=== PATIENT | female | born 1985 ===

== ENCOUNTER 2017-11-02 08:58 | Emergency (ER) | payer OTHER ==
[2017-11-02 08:58] VITALS: BMI 20.3
--- NOTE | 2017-11-02 09:49 | ED PDOC ---
Arrival/HPI - General Chief Complaint: Flu-like Symptoms Time Seen by Provider: 11/02/17 09:21 Historian: Patient - History of Present Illness Narrative History of Present Illness (Text): 11/02/17 09:44 Pt is a 32 F who presents to the ED for LUQ pain x 4 hrs today (1am-6am) that wrps around to the back, productive cough, and subjective fever x 1 day. Pt complains that she recently began smoking again which typically causes a cough. As well, she reports itchy and watery eyes, nose and throat and change in appetite. Also reports Pt has h/o anxiety for which she takes clonazapam as needed and has allergies. Denies cp, n/v/d GIB, or change in bowel or urine output, or recent illnesses. FMH includes pancreatitis. t states that she believes she is having pancreatitis. Time/Duration: Prior to Arrival Symptom Onset: Sudden Symptom Course: Improving Quality: Aching, Cramping Severity Level: Mild Activities at Onset: Rest, Sleeping Context: Home Past Medical History - Provider Review Nursing Documentation Reviewed: Yes - Travel History Have you recently traveled outside [place] w/in the past 3 mons?: No - Past History Past History: No Previous - Infectious Disease Hx of Infectious Diseases: None - Tetanus Immunization Tetanus Immunization: Unknown - Reproductive Currently : No - Cardiac Hx Cardiac Disorders: No - Pulmonary Hx Respiratory Disorders: No - Neurological Hx Neurological Disorder: No - HEENT Hx HEENT Disorder: No - Renal Hx Renal Disorder: No - Endocrine/Metabolic Hx Endocrine Disorders: No - Hematological/Oncological Hx Blood Disorders: No - Integumentary Hx Dermatological Disorder: No - Musculoskeletal/Rheumatological Hx Musculoskeletal Disorders: No - Gastrointestinal Hx Gastrointestinal Disorders: No - Genitourinary/Gynecological Hx Genitourinary Disorders: No - Psychiatric Hx Psychophysiologic Disorder: Yes Hx Anxiety: Yes Hx Depression: Yes Hx Substance Use: No - Anesthesia Hx Anesthesia: No - Suicidal Assessment Feels Threatened In Home Enviroment: No Family/Social History - Physician Review Nursing Documentation Reviewed: Yes Family/Social History: Other (pancreatitis) Smoking Status: Light Smoker < 10 Cigarettes Daily Hx Alcohol Use: No Hx Substance Use: No Allergies/Home Meds Allergies/Adverse Reactions: Allergies Penicillins Allergy (Verified 11/02/17 09:31) URTICARIA Home Medications: Home Meds Medication Instructions Recorded Confirmed clonazePAM [Klonopin] 0.5 mg PO PRN PRN 12/08/16 11/02/17 Review of Systems - Physician Review All systems were reviewed & negative as marked: Yes - Review of Systems Constitutional: Normal, Fevers (subjective) Eyes: Normal ENT: Sore Throat, Rhinorrhea Respiratory: SOB, Cough, Wheezing Cardiovascular: Normal Gastrointestinal: Abdominal Pain (diffuse, left upper abdominal and left back) Genitourinary Female: Normal Musculoskeletal: Normal Skin: Normal Neurological: Normal Endocrine: Normal Hemo/Lymphatic: Normal Psychiatric: Normal Physical Exam Vital Signs Reviewed: Yes Vital Signs Temp Pulse Resp BP Pulse Ox 11/02/17 14:52 98.5 F 93 H 18 98/58 L 99 11/02/17 12:28 98.6 F 85 22 95/59 L 100 11/02/17 11:59 98.6 F 11/02/17 10:59 100.5 F H 11/02/17 10:34 100.5 F H 11/02/17 08:58 99.4 F 98 H 20 105/69 99 Temperature: Afebrile Blood Pressure: Normal Pulse: Regular Respiratory Rate: Normal Appearance: Positive for: Non-Toxic, Comfortable Pain Distress: None Mental Status: Positive for: Alert and Oriented X 3 - Systems Exam Head: Present: Atraumatic, Normocephalic Pupils: Present: PERRL Extroacular Muscles: Present: EOMI Conjunctiva: Present: Normal Mouth: Present: Moist Mucous Membranes Pharnyx: Present: ERYTHEMA. No: Normal, EXUDATE, TONSILS ENLARGED, Peritonsilar Swelling, Uvular Deviation, Muffled/Hoarse Voice, Strider, Soft Palate/Uvular Edema, Other Neck: Present: Normal Range of Motion. No: Meningeal Signs, MIDLINE TENDERNESS , Paraspinal Tenderness, JVD, Lymphadenopathy, Bruit, Trachea Midline, Other Respiratory/Chest: Present: Good Air Exchange, Wheezes. No: Respiratory Distress, Accessory Muscle Use Cardiovascular: Present: Regular Rate and Rhythm, Normal S1, S2. No: Murmurs Abdomen: Present: Tenderness (mostly diffuse, left flank pain), Normal Bowel Sounds. No: Distention, Peritoneal Signs Back: Present: Normal Inspection. No: CVA Tenderness, Midline Tenderness, Paraspinal Tenderness, Pain with Leg Raise, Decubitus Ulcer, Other Upper Extremity: Present: Normal Inspection. No: Cyanosis, Edema Lower Extremity: Present: Normal Inspection. No: Edema Neurological: Present: GCS=15, CN II-XII Intact, Speech Normal Skin: Present: Warm, Dry, Normal Color. No: Rashes Psychiatric: Present: Alert, Oriented x 3, Normal Insight, Normal Concentration Medical Decision Making ED Course and Treatment: 11/02/17 09:49 Pt is a 32 F who presents t the ED for LUQ pain x 4 hrs today (1am-6am) along with left flank pain, productive cough, and subjective fever x 1 day PE reveals mild wheezing bilateral lung lopez, mild posterior pharyngeal erythema, mild diffuse abdominal tenderness on palpation Plan CXR cbc, cmp, ua, rapid flu working dx of pancreatitis, uti, flu/uri -NPO, abd/pelvis CT with po and iv contrast, lipase and lipid levels, ivfluids @ 200cc/hr -pain management assess and dispo Progress Note Pt developed fever and was given acetaminophen 650 mg po Zofran 4 mg for nausea Morphine 2mg ivp q6 prn; pt refused morphine and requested other; Toradol 30 mg ivp stat Discussed findings with pt and partner; no pathology found on labs and imaging Dx of flu although not tested positive, cough, fever, stomach pain and change in appetite very typical Homecare: loratidine for allergies; stop smoking and use humidifier in house and bedroom acetaminophen for fever ranitidine for indigestion and nausea f/u with PMD in the next 2 days 11/02/17 13:47 - Lab Interpretations Lab Results: 11/02/17 10:20 11/02/17 10:20 Lab Results 11/02/17 12:40: C-React Prot High Sens 0.32 L 11/02/17 11:38: Triglycerides 49, Cholesterol 131, LDL Cholesterol Direct 67, HDL Cholesterol 44, Amylase 45, Lipase 76 11/02/17 10:20: Influenza Typ A,B (EIA) Negative for flu a/b 11/02/17 10:20: Sodium 142, Potassium 3.6, Chloride 105, Carbon Dioxide 27, Anion Gap 13, BUN 6 L, Creatinine 0.7, Est GFR ( Amer) > 60, Est GFR (Non -Af Amer) > 60, Random Glucose 92, Calcium 8.9, Total Bilirubin 0.4, AST 27, ALT 26, Alkaline Phosphatase 41, Total Protein 6.4, Albumin 3.6, Globulin 2.8, Albumin/Globulin Ratio 1.3 11/02/17 10:20: Urine Color Yellow, Urine Appearance Clear, Urine pH 7.5, Ur Specific Lorimor 1.020, Urine Protein Negative, Urine Glucose (UA) Negative, Urine Ketones Negative, Urine Blood Negative, Urine Nitrate Negative, Urine Bilirubin Negative, Urine Urobilinogen 0.2, Ur Leukocyte Esterase Negative 11/02/17 10:20: WBC 3.5 L D, RBC 4.08, Hgb 11.3 L, Hct 34.5 L, MCV 84.6, MCH 27.7, MCHC 32.8, RDW 13.4, Plt Count 175, MPV 10.0 I have reviewed the lab results: Yes (NEG for Flu) Interpretation: All labs normal - RAD Interpretation Narrative RAD Interpretations (Text): 11/02/17 13:13 Chest XR Findings: No active disease appreciated 11/02/17 13:45 PROCEDURE: CT Abdomen and Pelvis with contrast HISTORY: LUQ pain COMPARISON: None. TECHNIQUE: Contrast dose: 100 cc of Omni 350 Radiation dose: Total exam DLP = 299 mGy-cm. This CT exam was performed using one or more of the following dose reduction techniques: Automated exposure control, adjustment of the mA and/or kV according to patient size, and/or use of iterative reconstruction technique. FINDINGS: LOWER THORAX: Unremarkable. LIVER: Unremarkable. No gross lesion or ductal dilatation. There is some fatty infiltration around the falciform ligament. GALLBLADDER AND BILE DUCTS: Unremarkable. PANCREAS: Unremarkable. No gross lesion or ductal dilatation. SPLEEN: Unremarkable. ADRENALS: Unremarkable. No mass. KIDNEYS AND URETERS: Unremarkable. No hydronephrosis. No solid mass. VASCULATURE: Unremarkable. No aortic aneurysm. BOWEL: Unremarkable. No obstruction. No gross mural thickening. APPENDIX: Normal appendix. PERITONEUM: Unremarkable. No free fluid. No free air. LYMPH NODES: Unremarkable. No enlarged lymph nodes. BLADDER: Unremarkable. REPRODUCTIVE: Retroflexed uterus. Bilateral ovarian cysts BONES: No acute fracture. OTHER FINDINGS: None. IMPRESSION: No acute intra-abdominal findings Radiology Orders: 11/02/17 09:55 CHEST TWO VIEWS (PA/LAT) [RAD] Stat 11/02/17 11:10 ABDOMEN & PELVIS [ABD PELVIS PO & IV CONTRAST] [CT] Stat Research Lab Assistant: Radiologist - Medication Orders Current Medication Orders: Discontinued Medications Acetaminophen (Tylenol 325mg Tab) 650 mg PO STAT STA Stop: 11/02/17 10:53 Last Admin: 11/02/17 10:59 Dose: 650 mg MAR Pain/Vitals Document 11/02/17 10:59 RG (Rec: 11/02/17 11:00 [id number] Vitals Temperature (97.6 F-99.6 F) 100.5 F Temperature Source Oral Re-Assess: MAR Pain/Vitals Document 11/02/17 11:59 RG (Rec: 11/02/17 13:18 [id number] Vitals Temperature (97.6 F-99.6 F) 98.6 F Temperature Source Oral Sodium Chloride (Sodium Chloride 0.9%) 500 mls @ 200 mls/hr IV .Q2H30M CLARENCE Last Admin: 11/02/17 11:40 Dose: 200 mls/hr eMAR Start Stop Document 11/02/17 11:40 RG (Rec: 11/02/17 11:52 [id number] Intravenous Solution Start Date 11/02/17 Start Time 11:40 Ketorolac Tromethamine (Toradol) 30 mg IVP STAT STA Stop: 11/02/17 12:44 Last Admin: 11/02/17 13:04 Dose: 30 mg MAR Pain Assessment Document 11/02/17 13:04 RG (Rec: 11/02/17 13:04 [id number] Pain Reassessment Is this a pain reassessment? Yes Location Left, Right or Bilateral Right Upper or Lower Upper Pain Location Body Site Abdomen Description Description Constant Pain Behavior Moaning Guarding Irritability IVP Administration Document 11/02/17 13:04 RG (Rec: 11/02/17 13:04 [id number] Charges for Administration # of IVP Administrations 1 Morphine Sulfate (Morphine) 2 mg IVP STAT STA Stop: 11/02/17 12:26 Last Admin: 11/02/17 12:41 Dose: Not Given Non-Admin Reason: Patient Refused Ondansetron HCl (Zofran Inj) 4 mg IVP STAT STA Stop: 11/02/17 11:05 Last Admin: 11/02/17 11:04 Dose: 4 mg IVP Administration Document 11/02/17 11:04 TYRONE (Rec: 11/02/17 11:49 TYRONE [id number]) Charges for Administration # of IVP Administrations 1 Disposition/Present on Arrival - Present on Arrival Any Indicators Present on Arrival: No History of DVT/PE: No History of Uncontrolled Diabetes: No Urinary Catheter: No History of Decub. Ulcer: No History Surgical Site Infection Following: None - Disposition Have Diagnosis and Disposition been Completed?: Yes Diagnosis: Influenza, Stomach ache, Cough Disposition: HOME/ ROUTINE Disposition Time: 13:56 Patient Plan: Discharge Condition: STABLE Discharge Instructions (ExitCare): Influenza (ED) Additional Instructions: Dear Nelson, We advise that you continue to rest at home, drink plenty of fluids and eat light meals as you recover. When you don't eat and drink enough fluids, you can feel weak and lightheaded. If you experience chest pain, shortness of breath, severe abdominal pain again, return to the emergency department to be reassessed. Take all medications as recommended. Please follow up with your PMD in the next 24-48 hours. All the best in your recovery! Prescriptions: Acetaminophen [Tylenol Extra Strength] 500 mg PO Q6 5 Days #20 tablet Loratadine 10 mg PO DAILY 14 Days #14 tablet raNITIdine [Zantac Soln 5ml] 150 mg PO BID 5 Days #10 ml Forms: [facility] (Latvian), WORK NOTE
[2017-11-02 10:41] LABS: HEMOGLOBIN 11.3 g/dL (12.0-16.0); MEAN CELL VOLUME 84.6 fl (80.0-105.0); MEAN CORPUSCULAR HEMOGLOBIN 27.7 pg (25.0-35.0); MEAN CORPUSCULAR HGB CONC 32.8 g/dl (31.0-37.0); PH,URINE 7.5 (4.7-8.0); RBC 4.08 10^6/uL (3.5-6.1); RED CELL DISTRIBUTION WIDTH 13.4 % (11.5-14.5); URINE BILIRUBIN NEGATIVE (NEGATIVE); URINE BLOOD NEGATIVE (NEGATIVE); URINE GLUCOSE (UA) NEGATIVE (NEGATIVE); URINE LEUKOCYTE ESTERASE NEGATIVE Leu/uL (NEGATIVE); URINE NITRATE NEGATIVE (NEGATIVE); URINE PROTEIN NEGATIVE mg/dL (<30 mg/dL); URINE UROBILINOGEN 0.2 E.U./dL (<1 E.U./dL); WHITE BLOOD COUNT 3.5 10^3/ul (4.5-11.0)
[2017-11-02 10:46] LABS: ALB/GLOB RATIO 1.3 (1.1-1.8); ALBUMIN 3.6 g/dL (3.0-4.8); ALT/SGPT 26 U/L (7-56); AST/SGOT 27 U/L (14-36); BLOOD UREA NITROGEN 6 mg/dL (7-21); CALCIUM 8.9 mg/dL (8.4-10.5); GFR AFRICAN-AMERICAN > 60; GFR NON-AFRICAN AMERICAN > 60
[2017-11-02 10:47] LABS: URINE APPEARANCE CLEAR (CLEAR); URINE COLOR YELLOW (YELLOW)
[2017-11-02] MEDS ORDERED: Iohexol 240 (50 ml) ONE (11:19)
[2017-11-02] MEDS ORDERED: Sodium Chloride 0.9% 500 ML IV SCH (11:30)
[2017-11-02] MEDS ORDERED: Iohexol 350 MG/100 ML VIAL ONE (11:34)
[2017-11-02 11:56] LABS: HDL CHOLESTEROL 44 mg/dL (29-60); LIPASE 76 U/L (23-300)
[2017-11-02 12:02] LABS: LDL CHOLESTEROL 67 mg/dL (0-129)
[2017-11-02 12:19] LABS: AMYLASE 45 U/L (35-125)
[2017-11-02] MEDS ORDERED: Morphine 2 mg/ml ISec IVP STA (12:25)
--- NOTE | 2017-11-02 12:48 | RAD ---
HISTORY: cough COMPARISON: No prior. TECHNIQUE: Chest PA and lateral FINDINGS: LUNGS: No active pulmonary disease. PLEURA: No significant pleural effusion identified. No pneumothorax apparent. CARDIOVASCULAR: Normal. OSSEOUS STRUCTURES: No significant abnormalities. VISUALIZED UPPER ABDOMEN: Normal. OTHER FINDINGS: None. IMPRESSION: No active disease.
--- NOTE | 2017-11-02 13:37 | CT ---
PROCEDURE: CT Abdomen and Pelvis with contrast HISTORY: LUQ pain COMPARISON: None. TECHNIQUE: Contrast dose: 100 cc of Omni 350 Radiation dose: Total exam DLP = 299 mGy-cm. This CT exam was performed using one or more of the following dose reduction techniques: Automated exposure control, adjustment of the mA and/or kV according to patient size, and/or use of iterative reconstruction technique. FINDINGS: LOWER THORAX: Unremarkable. LIVER: Unremarkable. No gross lesion or ductal dilatation. There is some fatty infiltration around the falciform ligament. GALLBLADDER AND BILE DUCTS: Unremarkable. PANCREAS: Unremarkable. No gross lesion or ductal dilatation. SPLEEN: Unremarkable. ADRENALS: Unremarkable. No mass. KIDNEYS AND URETERS: Unremarkable. No hydronephrosis. No solid mass. VASCULATURE: Unremarkable. No aortic aneurysm. BOWEL: Unremarkable. No obstruction. No gross mural thickening. APPENDIX: Normal appendix. PERITONEUM: Unremarkable. No free fluid. No free air. LYMPH NODES: Unremarkable. No enlarged lymph nodes. BLADDER: Unremarkable. REPRODUCTIVE: Retroflexed uterus. Bilateral ovarian cysts BONES: No acute fracture. OTHER FINDINGS: None. IMPRESSION: No acute intra-abdominal findings
[2017-11-02 14:53] VITALS: BP 98/58; PULSE 93; RESP 18; TEMP 98.5; O2SAT 99
== END 2017-11-02 14:30 | disposition home or self-care (01) ==
LOC: ED 08:58
DX: J11.1 Influenza due to unidentified influenza virus with other respiratory manifestations (principal); R10.9 Unspecified abdominal pain; R05 Cough; F17.210 Nicotine dependence, cigarettes, uncomplicated
CPT/HCPCS: 71046; 74177; 80053; 80061; 81003; 82150; 83690; 85027; 86140; 87804; 96374; 96375; 99285; J1885; J2405; J7040; Q9966; Q9967

== ENCOUNTER 2017-11-02 19:47 | Inpatient (IN) | payer MEDICARE, OTHER ==
[2017-11-02 20:04] VITALS: BMI 19.8
[2017-11-02] MEDS ORDERED: Sodium Chloride 0.9% 1,000 ML IV STA ×2 (20:06→23:23)
[2017-11-02 23:22] LABS: ALB/GLOB RATIO 1.3 (1.1-1.8); ALBUMIN 3.6 g/dL (3.0-4.8); ALT/SGPT 23 U/L (7-56); AST/SGOT 22 U/L (14-36); BASO # 0.01 K/mm3 (0.0-2.0); BASO % 0.4 % (0.0-3.0); BLOOD UREA NITROGEN 6 mg/dL (7-21); CALCIUM 8.9 mg/dL (8.4-10.5); EOS % 1.6 % (1.5-5.0); GFR AFRICAN-AMERICAN > 60; GFR NON-AFRICAN AMERICAN > 60; GRAN # 1.72 (1.4-6.5); GRAN % 67.9 % (50.0-68.0); LYMPH # 0.5 (1.2-3.4); LYMPH % 18.2 % (22.0-35.0); MEAN CELL VOLUME 83.3 fl (80.0-105.0); MEAN CORPUSCULAR HEMOGLOBIN 27.9 pg (25.0-35.0); MEAN CORPUSCULAR HGB CONC 33.5 g/dl (31.0-37.0); MEAN PLATELET VOLUME 10.4 fl (7.0-11.0); MONO # 0.3 (0.1-0.6); MONO % 11.9 % (1.0-6.0); RBC 4.3 10^6/uL (3.5-6.1); RED CELL DISTRIBUTION WIDTH 13.6 % (11.5-14.5)
[2017-11-02 23:48] LABS: WHITE BLOOD COUNT 2.5 10^3/ul (4.5-11.0)
[2017-11-03 01:14] LABS: VENOUS BLOOD GAS BASE EXCESS 0.3 mmol/L (0.0-2.0); VENOUS BLOOD GAS PO2 196 mm/Hg (30-55); VENOUS BLOOD PH 7.46 (7.32-7.43)
[2017-11-03] MEDS ORDERED: levoFLOXacin 750 mg in D5W 750 MG/150 ML BAG IVPB STA (01:20)
[2017-11-03] MEDS ORDERED: Azithromycin 500MG/NS 250ml 500 MG/250 ML BAG IVPB STA (01:27)
[2017-11-03] MEDS ORDERED: cefTRIAXone 1 gm 1 GM/100 ML BAG IVPB STA (01:27)
[2017-11-03] MEDS ORDERED: Albuterol-Ipratrop 3 mg / 0.5 (3 ml) UD IH PRN (02:15)
--- NOTE | 2017-11-03 02:18 | CP.PCM.HP ---
<Tanya Abad - Last Filed: 11/03/17 02:02> History of Present Illness - History of Present Illness History of Present Illness: H&P for HospitalistNighat PGY2 This is a 32yo female with PMH of anxiety who came into ED for fever x 1 day and abdominal pain x 12hrs. Patient was seen earlier today for fever and LUQ pain. Patient reports having LUQ pain that radiates to her back with some nausea that is intermittent. She was d/c from ED with Bactrim, Zofran and Benytl. She had a CT abd/pelvis, CXR and rapid flu which were negative. She still was not feeling well and was "wheezing" as per spouse and decided to come back to the ED. She said her fevers started yesterday with body aches. She denies sick contacts (son was not sick at home), alcohol use, recent travel, cough, chest pain, shortness of breath, numbness/tingling, dysuria, hematuria, vomiting or diarrhea. Patient said she did go to [place] for food tasting for a wedding on Wednesday, but otherwise no changes in diet. In ED, patient was noted to be febrile with Temp: 103 and leukopenia. PMH: anxiety PSH: D&C 11yrs ago Home meds: Klonopin as needed Allergies: Penicillin- causes diarrhea when taken orally SH: Smokes 1/2ppd (quit recently), EtOH use occasionally, denies drug use. Lives with partner and has 11yr old son FH: Mom-RA, SLE, Sjogrens Present on Admission - Present on Admission Any Indicators Present on Admission: No Review of Systems - Review of Systems All systems: reviewed and no additional remarkable complaints except Review of Systems: As per HPI Past Patient History - Infectious Disease Hx of Infectious Diseases: None - Tetanus Immunizations Tetanus Immunization: Unknown - Past Social History Smoking Status: Light Smoker < 10 Cigarettes Daily Alcohol: None Drugs: Denies Home Situation {Lives}: With Family - CARDIAC Hx Cardiac Disorders: No - PULMONARY Hx Respiratory Disorders: No - NEUROLOGICAL Hx Neurological Disorder: No - HEENT Hx HEENT Problems: No - RENAL Hx Chronic Kidney Disease: No - ENDOCRINE/METABOLIC Hx Endocrine Disorders: No - HEMATOLOGICAL/ONCOLOGICAL Hx Blood Disorders: No - INTEGUMENTARY Hx Dermatological Problems: No - MUSCULOSKELETAL/RHEUMATOLOGICAL Hx Musculoskeletal Disorders: No - GASTROINTESTINAL Hx Gastrointestinal Disorders: No - GENITOURINARY/GYNECOLOGICAL Hx Genitourinary Disorders: No - PSYCHIATRIC Hx Psychophysiologic Disorder: Yes Hx Anxiety: Yes Hx Depression: Yes Hx Substance Use: No - SURGICAL HISTORY Hx Surgeries: No - ANESTHESIA Hx Anesthesia: No Meds Allergies/Adverse Reactions: Allergies Allergy/AdvReac Type Severity Reaction Status Date / Time Penicillins Allergy DIARRHEA Verified 11/03/17 01:34 Physical Exam - Constitutional Appears: No Acute Distress - Head Exam Head Exam: ATRAUMATIC, NORMAL INSPECTION, NORMOCEPHALIC - Eye Exam Eye Exam: Normal appearance, PERRL Pupil Exam: NORMAL ACCOMODATION, PERRL - ENT Exam ENT Exam: Mucous Membranes Moist - Respiratory Exam Respiratory Exam: Clear to Auscultation Bilateral, NORMAL BREATHING PATTERN. absent: Rales, Rhonchi, Wheezes - Cardiovascular Exam Cardiovascular Exam: Tachycardia, REGULAR RHYTHM, +S1, +S2. absent: Gallop, Rubs, Systolic Murmur - GI/Abdominal Exam GI & Abdominal Exam: Normal Bowel Sounds, Soft. absent: Mass, Rebound, Rigid, Tenderness - Extremities Exam Extremities exam: Positive for: normal inspection. Negative for: calf tenderness, pedal edema - Neurological Exam Neurological exam: Alert, CN II-XII Intact, Oriented x3 - Psychiatric Exam Psychiatric exam: Normal Affect, Normal Mood - Skin Skin Exam: Dry, Normal Color, Warm Results - Vital Signs Recent Vital Signs: Last Vital Signs Temp 100 F H 11/03/17 00:00 Pulse 98 H 11/03/17 00:00 Resp 16 11/03/17 00:00 BP 125/79 11/03/17 00:00 Pulse Ox 98 11/03/17 00:00 - Labs Result Diagrams: 11/02/17 22:38 11/02/17 22:38 Labs: Laboratory Results - last 24 hr 11/02/17 11/02/17 11/02/17 21:30 22:38 22:38 WBC 2.5 L* D RBC 4.30 Hgb 12.0 Hct 35.8 L MCV 83.3 MCH 27.9 MCHC 33.5 RDW 13.6 Plt Count 176 MPV 10.4 Gran % 67.9 Lymph % (Auto) 18.2 L [place] % (Auto) 11.9 H Eos % (Auto) 1.6 Baso % (Auto) 0.4 Gran # 1.72 Lymph # (Auto) 0.5 L [place] # (Auto) 0.3 Eos # (Auto) 0.0 Baso # (Auto) 0.01 pO2 VBG pH VBG pCO2 VBG HCO3 VBG Total CO2 VBG O2 Sat (Calc) VBG Base Excess VBG Potassium Glucose Lactate FiO2 Sodium 140 Potassium 3.3 L Chloride 106 Carbon Dioxide 23 Anion Gap 14 BUN 6 L Creatinine 0.8 Est GFR ( Amer) > 60 Est GFR (Non-Af Amer) > 60 Random Glucose 115 H Calcium 8.9 Total Bilirubin 0.3 AST 22 ALT 23 Alkaline Phosphatase 39 Total Protein 6.5 Albumin 3.6 Globulin 2.9 Albumin/Globulin Ratio 1.3 Venous Blood Potassium Influenza Typ A,B (EIA) Negative for flu a/b 11/03/17 00:50 WBC RBC Hgb Hct MCV MCH MCHC RDW Plt Count MPV Gran % Lymph % (Auto) [place] % (Auto) Eos % (Auto) Baso % (Auto) Gran # Lymph # (Auto) [place] # (Auto) Eos # (Auto) Baso # (Auto) pO2 196 H VBG pH 7.46 H VBG pCO2 33.0 L VBG HCO3 23.5 VBG Total CO2 24.5 VBG O2 Sat (Calc) 100.0 H VBG Base Excess 0.3 VBG Potassium 3.2 L Glucose 102 Lactate 0.6 L FiO2 21.0 Sodium 139.0 Potassium Chloride 114.0 H Carbon Dioxide Anion Gap BUN Creatinine Est GFR ( Amer) Est GFR (Non-Af Amer) Random Glucose Calcium Total Bilirubin AST ALT Alkaline Phosphatase Total Protein Albumin Globulin Albumin/Globulin Ratio Venous Blood Potassium 3.2 L Influenza Typ A,B (EIA) Assessment & Plan - Assessment and Plan (Free Text) Assessment: This is a 32yo F with PMH of anxiety admitted for SIRS (fever and tachycardia). Plan: 1. SIRS - Can be secondary to flu although rapid flu negative - Will check influenza Ab - CXR negative, CT abd/pelvis was negative for acute pathology, U/A negative - Lactate 0.6 - Procal, HIV and drug screen ordered - Blood culture and sputum culture ordered - ID consulted - Tylenol and Zofran prn - NS@100 - Will give Tamiflu, Rocephin and Zithro 2. Hx of Anxiety - Klonopin prn GI ppx: Protonix DVT ppx: SCDs Case seen, discussed and reviewed with attending. Nighat Abad PGY2 <Jose King - Last Filed: 11/03/17 02:53> Results - Vital Signs Recent Vital Signs: Last Vital Signs Temp 99.9 F H 11/03/17 02:00 Pulse 112 H 11/03/17 02:00 Resp 16 11/03/17 02:00 BP 102/72 11/03/17 02:00 Pulse Ox 100 11/03/17 02:00 - Labs Result Diagrams: 11/02/17 22:38 11/02/17 22:38 Attending/Attestation - Attestation I have personally seen and examined this patient.: Yes I have fully participated in the care of the patient.: Yes I have reviewed all pertinent clinical information: Yes Notes (Text): 11/03/17 02:43 Patient was seen when she was in room # 9 in the ER. Agree with history, physical examination, assessment and plan. She gives following history.Wheezing, back pain, cough, congestion, fever, pmh of anxiety, headaches, gastritis, seasonal allergies, sinusitis, states that she is waiting for sinus surgery, endoscopy in 2005 , treated for H.Pylori, family history of DM, SLE, Sjogren's , cervical cancer, breast cancer, colon cancer.
[2017-11-03] MEDS ORDERED: Potassium Chloride 20 mEq ER Tab PO STA (02:34)
[2017-11-03] MEDS: Sodium Chloride 0.9% 1,000 ML IV SCH ×3 (02:41→23:02)
--- NOTE | 2017-11-03 02:43 | ED PDOC ---
Arrival/HPI - General Chief Complaint: Fever Time Seen by Provider: 11/02/17 20:01 Historian: Patient - History of Present Illness Narrative History of Present Illness (Text): 11/03/17 03:09 32-year-old female with a history of asthma presents today with high fever and diffuse body aches and weakness. Patient states she was just discharged from the emergency room earlier today. Patient states she's been having fevers for one day with abdominal pain has been ongoing for about 12 hours. Patient states she has pain in the left upper side of the abdomen and radiates to the back. She denies any urinary symptoms. Denies chest pain or shortness of breath. Patient states she's had a dry cough. Patient states she has not been around any sick contacts. Patient complaining of nausea. No vomiting or diarrhea. Past Medical History - Provider Review Nursing Documentation Reviewed: Yes - Travel History Have you recently traveled outside [place] w/in the past 3 mons?: No - Past History Past History: No Previous - Infectious Disease Hx of Infectious Diseases: None - Tetanus Immunization Tetanus Immunization: Unknown - Cardiac Hx Cardiac Disorders: No - Pulmonary Hx Respiratory Disorders: No - Neurological Hx Neurological Disorder: No - HEENT Hx HEENT Disorder: No - Renal Hx Renal Disorder: No - Endocrine/Metabolic Hx Endocrine Disorders: No - Hematological/Oncological Hx Blood Disorders: No - Integumentary Hx Dermatological Disorder: No - Musculoskeletal/Rheumatological Hx Musculoskeletal Disorders: No - Gastrointestinal Hx Gastrointestinal Disorders: No - Genitourinary/Gynecological Hx Genitourinary Disorders: No - Psychiatric Hx Psychophysiologic Disorder: Yes Hx Anxiety: Yes Hx Depression: Yes Hx Substance Use: No - Anesthesia Hx Anesthesia: No - Suicidal Assessment Feels Threatened In Home Enviroment: No Family/Social History - Physician Review Nursing Documentation Reviewed: Yes Family/Social History: Unknown Family HX Smoking Status: Light Smoker < 10 Cigarettes Daily Hx Alcohol Use: No Hx Substance Use: No Allergies/Home Meds Allergies/Adverse Reactions: Allergies Penicillins Allergy (Verified 11/03/17 01:34) DIARRHEA gets stomach ache Home Medications: Home Meds Medication Instructions Recorded Confirmed clonazePAM [Klonopin] 0.5 mg PO PRN PRN 12/08/16 11/03/17 Review of Systems - Review of Systems Constitutional: Fatigue, Fevers ENT: Sore Throat, Sinus Congestion Respiratory: Cough Cardiovascular: absent: Chest Pain, Palpitations Gastrointestinal: Abdominal Pain, Nausea. absent: Constipation, Vomiting Genitourinary Female: absent: Dysuria Musculoskeletal: absent: Arthralgias, Back Pain Skin: absent: Rash, Pruritis Neurological: absent: Headache, Dizziness Physical Exam Vital Signs Reviewed: Yes Vital Signs Temp Pulse Resp BP Pulse Ox 11/03/17 02:00 99.9 F H 112 H 16 102/72 100 11/03/17 00:00 100 F H 98 H 16 125/79 98 11/02/17 22:12 100.7 F H 105 H 24 106/65 98 11/02/17 20:04 103.1 F H 129 H 21 97/59 L 98 Temperature: Febrile Blood Pressure: Hypotensive Pulse: Tachycardic Respiratory Rate: Normal Appearance: Positive for: Well-Appearing, Non-Toxic, Comfortable Pain Distress: None Mental Status: Positive for: Alert and Oriented X 3 - Systems Exam Head: Present: Atraumatic Pupils: Present: PERRL Extroacular Muscles: Present: EOMI Conjunctiva: Present: Normal Ears: Present: Normal, NORMAL TM Mouth: Present: Moist Mucous Membranes. No: Drooling, Trismus Pharnyx: Present: Normal. No: ERYTHEMA, EXUDATE, TONSILS ENLARGED, Peritonsilar Swelling, Uvular Deviation, Muffled/Hoarse Voice Nose (External): Present: Atraumatic Nose (Internal): Present: Normal Inspection Neck: Present: Normal Range of Motion, Trachea Midline. No: Meningeal Signs Respiratory/Chest: Present: Clear to Auscultation, Good Air Exchange. No: Respiratory Distress, Accessory Muscle Use Cardiovascular: Present: Regular Rate and Rhythm, Normal S1, S2. No: Murmurs Abdomen: No: Tenderness, Distention, Rebound, Guarding Back: Present: Normal Inspection Neurological: Present: GCS=15, Speech Normal Skin: Present: Warm, Dry, Normal Color. No: Rashes Psychiatric: Present: Alert, Oriented x 3 Medical Decision Making ED Course and Treatment: 11/03/17 03:11 32yr old female with fever, tachycardia and weakness. patient was seen in er earlier today; negative; labs reviewed. rapid flu negative cxr; wnl abd/pelvis ct; wnl pt given toradol for pain/fever. pt given 2L NS iv bolus. pt reassessment; pt remains tachycardic, feeling slightly better; c/o anxiety. pt given klonopin for anxiety; repeat labs; cbc; wbc; 2.5 cmp; wnl lactate; wnl rapid flu; negative pt with high fever, tachycardia, 2nd visit to er with downward trending wbc. will admit observational status for sepsis. tamiflu given for flu like symptoms despite 2 negative rapid flu tests today. will cover patient with Rocephin and zithromax. case discussed with dr. henson in depth. case discussed with dr. wen; accepts observational status admission impression; sepsis, fever admit observational status to med/surg 11/03/17 03:15 Reassessment Condition: Improving,but remains with symptoms - Lab Interpretations Lab Results: 11/02/17 22:38 11/02/17 22:38 Lab Results 11/03/17 00:50: pO2 196 H, VBG pH 7.46 H, VBG pCO2 33.0 L, VBG HCO3 23.5, VBG Total CO2 24.5, VBG O2 Sat (Calc) 100.0 H, VBG Base Excess 0.3, VBG Potassium 3.2 L, Glucose 102, Lactate 0.6 L, FiO2 21.0, Sodium 139.0, Chloride 114.0 H, Venous Blood Potassium 3.2 L 11/02/17 22:38: WBC 2.5 L* D, RBC 4.30, Hgb 12.0, Hct 35.8 L, MCV 83.3, MCH 27.9 , MCHC 33.5, RDW 13.6, Plt Count 176, MPV 10.4, Gran % 67.9, Lymph % (Auto) 18.2 L, [place] % (Auto) 11.9 H, Eos % (Auto) 1.6, Baso % (Auto) 0.4, Gran # 1.72, Lymph # (Auto) 0.5 L, [place] # (Auto) 0.3, Eos # (Auto) 0.0, Baso # (Auto) 0.01 11/02/17 22:38: Sodium 140, Potassium 3.3 L, Chloride 106, Carbon Dioxide 23, Anion Gap 14, BUN 6 L, Creatinine 0.8, Est GFR ( Amer) > 60, Est GFR (Non -Af Amer) > 60, Random Glucose 115 H, Calcium 8.9, Total Bilirubin 0.3, AST 22, ALT 23, Alkaline Phosphatase 39, Total Protein 6.5, Albumin 3.6, Globulin 2.9, Albumin/Globulin Ratio 1.3 11/02/17 21:30: Influenza Typ A,B (EIA) Negative for flu a/b - Medication Orders Current Medication Orders: Acetaminophen (Tylenol 325mg Tab) 650 mg PO Q6H PRN PRN Reason: Fever >100.4 F Albuterol/Ipratropium (Duoneb 3 Mg/0.5 Mg (3 Ml) Ud) 3 ml IH Q2H PRN PRN Reason: Shortness of Breath Clonazepam (Klonopin) 0.5 mg PO BID PRN; Protocol PRN Reason: Anxiety Sodium Chloride (Sodium Chloride 0.9%) 1,000 mls @ 100 mls/hr IV .Q10H [facility] Last Admin: 11/03/17 02:41 Dose: 100 mls/hr eMAR Start Stop Document 11/03/17 02:41 AB (Rec: 11/03/17 02:41 AB [id number]) Intravenous Solution Start Date 11/03/17 Start Time 02:41 End Date 11/03/17 Ceftriaxone Sodium (Rocephin 1 Gram Ivpb) 1 gm in 100 mls @ 100 mls/hr IVPB DAILY [facility] PRN Reason: Protocol Azithromycin (Zithromax 500mg In Ns) 500 mg in 250 mls @ 167 mls/hr IVPB DAILY [facility] PRN Reason: Protocol Ondansetron HCl (Zofran Inj) 4 mg IVP Q6H PRN PRN Reason: Nausea/Vomiting Oseltamivir Phosphate (Tamiflu Cap) 75 mg PO BID [facility] PRN Reason: Protocol Stop: 11/08/17 02:23 Pantoprazole Sodium (Protonix Ec Tab) 40 mg PO ACB [facility] Discontinued Medications Acetaminophen (Tylenol 325mg Tab) 975 mg PO STAT STA Stop: 11/02/17 22:24 Last Admin: 11/03/17 00:22 Dose: 975 mg Clonazepam (Klonopin) 0.5 mg PO STAT STA PRN Reason: Protocol Stop: 11/02/17 22:23 Last Admin: 11/02/17 22:38 Dose: 0.5 mg Famotidine (Pepcid) 20 mg IVP STAT STA Stop: 11/02/17 21:18 Last Admin: 11/02/17 22:14 Dose: 20 mg IVP Administration Document 11/02/17 22:14 AB (Rec: 11/02/17 22:14 AB [id number]) Charges for Administration # of IVP Administrations 1 Sodium Chloride (Sodium Chloride 0.9%) 1,000 mls @ 999 mls/hr IV .Q1H1M STA Stop: 11/02/17 21:06 Last Admin: 11/02/17 22:38 Dose: 999 mls/hr eMAR Start Stop Document 11/02/17 22:38 AB (Rec: 11/02/17 22:39 AB [id number]) Intravenous Solution Start Date 11/02/17 Start Time 21:38 End Date 11/02/17 End time 22:38 Total Infusion Time 60 Sodium Chloride (Sodium Chloride 0.9%) 1,000 mls @ 999 mls/hr IV .Q1H1M STA Stop: 11/03/17 00:23 Last Admin: 11/03/17 00:17 Dose: 999 mls/hr eMAR Start Stop Document 11/03/17 00:17 AB (Rec: 11/03/17 00:17 AB [id number]) Intravenous Solution Start Date 11/03/17 Start Time 00:17 End Date 11/03/17 Ceftriaxone Sodium (Rocephin 1 Gram Ivpb) 1 gm in 100 mls @ 200 mls/hr IVPB STAT STA PRN Reason: Protocol Stop: 11/03/17 01:56 Last Admin: 11/03/17 02:41 Dose: 200 mls/hr eMAR Start Stop Document 11/03/17 02:41 AB (Rec: 11/03/17 02:42 AB [id number]) Intravenous Solution Start Date 11/03/17 Start Time 02:42 End Date 11/03/17 End time 03:12 Total Infusion Time 30 Azithromycin (Zithromax 500mg In Ns) 500 mg in 250 mls @ 167 mls/hr IVPB STAT STA PRN Reason: Protocol Stop: 11/03/17 02:56 Ketorolac Tromethamine (Toradol) 30 mg IVP STAT STA Stop: 11/02/17 20:07 Last Admin: 11/02/17 22:38 Dose: 30 mg MAR Pain Assessment Document 11/02/17 22:38 AB (Rec: 11/02/17 22:38 AB [id number]) Pain Reassessment Is this a pain reassessment? Yes Sleep Is patient sleeping during reassessment? No Presence of Pain Presence of Pain Yes Location Left, Right or Bilateral Left Upper or Lower Upper Pain Location Body Site Abdomen Description Description Constant Intensity of Pain at present 4 Pain Behavior Moaning Crying Aggravating Factors ADL's Alleviating Factors/Management Medication Techniques Alleviating Factors Medication IVP Administration Document 11/02/17 22:38 AB (Rec: 11/02/17 22:38 AB [id number]) Charges for Administration # of IVP Administrations 1 Ondansetron HCl (Zofran Inj) 4 mg IVP STAT STA Stop: 11/02/17 21:18 Last Admin: 11/02/17 22:30 Dose: 4 mg IVP Administration Document 11/02/17 22:30 AB (Rec: 11/02/17 22:30 AB [id number]) Charges for Administration # of IVP Administrations 1 Oseltamivir Phosphate (Tamiflu Cap) 75 mg PO STAT STA PRN Reason: Protocol Stop: 11/02/17 22:49 Last Admin: 11/03/17 00:22 Dose: 75 mg Potassium Chloride (K-Dur 20 Meq Er Tab) 20 meq PO STAT STA Stop: 11/03/17 02:35 Disposition/Present on Arrival - Present on Arrival Any Indicators Present on Arrival: No History of DVT/PE: No History of Uncontrolled Diabetes: No Urinary Catheter: No History of Decub. Ulcer: No History Surgical Site Infection Following: None - Disposition Have Diagnosis and Disposition been Completed?: Yes Diagnosis: Sepsis, Fever Disposition: HOSPITALIZED Disposition Time: 02:00 Patient Plan: Observation Patient Problems: Current Active Problems Problem Status Onset Fever Acute Sepsis Acute Condition: FAIR
[2017-11-03] MEDS: Pantoprazole 40 mg EC Tab PO SCH (06:51)
[2017-11-03 07:26] LABS: BARBITURATES, UR NEGATIVE (NEGATIVE); BENZODIAZEPINES, UR NEGATIVE (NEGATIVE); OPIATES, UR NEGATIVE (NEGATIVE); PHENCYCLIDINE, UR NEGATIVE (NEGATIVE)
[2017-11-03] MEDS: cefTRIAXone 1 gm 1 GM/100 ML BAG IVPB SCH (09:04)
[2017-11-03] MEDS: Azithromycin 500MG/NS 250ml 500 MG/250 ML BAG IVPB SCH (09:04)
--- NOTE | 2017-11-03 18:24 | CP.PCM.PN ---
Subjective - Date & Time of Evaluation Date of Evaluation: 11/03/17 Time of Evaluation: 17:00 - Subjective Subjective: Infectious Disease Consultation: November 03, 2017 32 yo female with 1 day of fevers and worsening abdominal pain. The patient had a negative rapid flu test but she complains of shortness of breath, cough, and body aches. The patient has a history of gastritis and anxiety. Questionable PCN allergy as she states stomach upset. History of H. pylori. History of travel outside of the [facility]. PMHx: Anxiety, Gastritis, history of H. pylori. PSHx: D&C 11 yrs ago Allergies: PCN - diarrhea and abdominal pain Social Hx: 1/2 ppd, Social EtOH, denies other illicit drug use Active Medications Acetaminophen (Tylenol 325mg Tab) 650 mg PO Q6H PRN PRN Reason: Pain, Mild (1-3) Last Admin: 11/03/17 12:20 Dose: 650 mg Albuterol/Ipratropium (Duoneb 3 Mg/0.5 Mg (3 Ml) Ud) 3 ml IH Q2H PRN PRN Reason: Shortness of Breath Clonazepam (Klonopin) 0.5 mg PO BID PRN; Protocol PRN Reason: Anxiety Last Admin: 11/03/17 06:12 Dose: 0.5 mg Sodium Chloride (Sodium Chloride 0.9%) 1,000 mls @ 100 mls/hr IV .Q10H [facility] Last Admin: 11/03/17 12:21 Dose: 100 mls/hr Ceftriaxone Sodium (Rocephin 1 Gram Ivpb) 1 gm in 100 mls @ 100 mls/hr IVPB DAILY [facility] PRN Reason: Protocol Last Admin: 11/03/17 09:04 Dose: 100 mls/hr Azithromycin (Zithromax 500mg In Ns) 500 mg in 250 mls @ 167 mls/hr IVPB DAILY [facility] PRN Reason: Protocol Last Admin: 11/03/17 09:04 Dose: 167 mls/hr Ibuprofen (Motrin Tab) 400 mg PO Q6H PRN PRN Reason: Fever >100.4 F Last Admin: 11/03/17 14:52 Dose: 400 mg Ondansetron HCl (Zofran Inj) 4 mg IVP Q6H PRN PRN Reason: Nausea/Vomiting Last Admin: 11/03/17 05:41 Dose: 4 mg Oseltamivir Phosphate (Tamiflu Cap) 75 mg PO BID [facility] PRN Reason: Protocol Stop: 11/08/17 02:23 Last Admin: 11/03/17 17:07 Dose: 75 mg Pantoprazole Sodium (Protonix Ec Tab) 40 mg PO ACB [facility] Last Admin: 11/03/17 06:51 Dose: 40 mg Family Hx: Mother - Rheumatoid Arthritis, SLE, Sjogren's? ROS: states feverish with chills, body aches, general weakness NO chest pain, melena, hematuria, hematemesis, hematochezia, depression, vision loss, hearing loss, loss of consciousness. Objective - Vital Signs/Intake and Output Vital Signs (last 24 hours): Temp Pulse Resp BP Pulse Ox 99.6 F 91 H 20 93/60 L 97 11/03/17 16:00 11/03/17 16:00 11/03/17 16:00 11/03/17 16:00 11/03/17 16:00 Intake and Output: 11/03/17 11/03/17 06:59 18:59 Intake Total 100 Balance 100 - Medications Medications: Current Medications Acetaminophen (Tylenol 325mg Tab) 650 mg PO Q6H PRN PRN Reason: Pain, Mild (1-3) Last Admin: 11/03/17 12:20 Dose: 650 mg Albuterol/Ipratropium (Duoneb 3 Mg/0.5 Mg (3 Ml) Ud) 3 ml IH Q2H PRN PRN Reason: Shortness of Breath Clonazepam (Klonopin) 0.5 mg PO BID PRN; Protocol PRN Reason: Anxiety Last Admin: 11/03/17 06:12 Dose: 0.5 mg Sodium Chloride (Sodium Chloride 0.9%) 1,000 mls @ 100 mls/hr IV .Q10H [facility] Last Admin: 11/03/17 12:21 Dose: 100 mls/hr Ceftriaxone Sodium (Rocephin 1 Gram Ivpb) 1 gm in 100 mls @ 100 mls/hr IVPB DAILY [facility] PRN Reason: Protocol Last Admin: 11/03/17 09:04 Dose: 100 mls/hr Azithromycin (Zithromax 500mg In Ns) 500 mg in 250 mls @ 167 mls/hr IVPB DAILY [facility] PRN Reason: Protocol Last Admin: 11/03/17 09:04 Dose: 167 mls/hr Ibuprofen (Motrin Tab) 400 mg PO Q6H PRN PRN Reason: Fever >100.4 F Last Admin: 11/03/17 14:52 Dose: 400 mg Ondansetron HCl (Zofran Inj) 4 mg IVP Q6H PRN PRN Reason: Nausea/Vomiting Last Admin: 11/03/17 05:41 Dose: 4 mg Oseltamivir Phosphate (Tamiflu Cap) 75 mg PO BID [facility] PRN Reason: Protocol Stop: 11/08/17 02:23 Last Admin: 11/03/17 17:07 Dose: 75 mg Pantoprazole Sodium (Protonix Ec Tab) 40 mg PO ACB [facility] Last Admin: 11/03/17 06:51 Dose: 40 mg - Constitutional Appears: Non-toxic, No Acute Distress - Head Exam Head Exam: ATRAUMATIC, NORMOCEPHALIC - Eye Exam Eye Exam: EOMI, PERRL Pupil Exam: NORMAL ACCOMODATION, PERRL - ENT Exam ENT Exam: Mucous Membranes Moist, Normal External Ear Exam, TM's Normal Bilaterally - Neck Exam Neck Exam: Full ROM, Normal Inspection - Respiratory Exam Respiratory Exam: Clear to Ausculation Bilateral, NORMAL BREATHING PATTERN. absent: Rales, Rhonchi, Wheezes - Cardiovascular Exam Cardiovascular Exam: Tachycardia, +S1, +S2 - GI/Abdominal Exam GI & Abdominal Exam: Soft, Normal Bowel Sounds. absent: Distended, Tenderness - Extremities Exam Extremities Exam: Full ROM, Normal Inspection - Neurological Exam Neurological Exam: Alert, Awake, CN II-XII Intact, Oriented x3 - Psychiatric Exam Psychiatric exam: Normal Affect, Normal Mood - Skin Skin Exam: Normal Color, Warm Assessment and Plan - Assessment and Plan (Free Text) Assessment: 32 yo female with flu like symptoms. Despite rapid flu testing being negative, the patient symptom reach all the hallmarks of Influenza. Currently on Tamiflu, Rocephin, and Azithromycin. Cultures pending. Fevers up to 102 F. Obtain serum titer studies for influenza. Supportive care. Patient with history of gastritis and prior H. pylori infection. Spoke with Dr. Granda. Thank you for allowing me to participate in the care of this patient, we will follow with you.
--- NOTE | 2017-11-03 18:25 | CP.PCM.CON ---
History of Present Illness - History of Present Illness History of Present Illness: See Progress note for ID Consultation Past Patient History - Infectious Disease Hx of Infectious Diseases: None - Tetanus Immunizations Tetanus Immunization: Unknown - Past Social History Smoking Status: Light Smoker < 10 Cigarettes Daily - CARDIAC Hx Cardiac Disorders: No - PULMONARY Hx Respiratory Disorders: Yes Hx Asthma: Yes (uses inhaler) - NEUROLOGICAL Hx Neurological Disorder: No - HEENT Hx HEENT Problems: No - RENAL Hx Chronic Kidney Disease: No - ENDOCRINE/METABOLIC Hx Endocrine Disorders: No - HEMATOLOGICAL/ONCOLOGICAL Hx Blood Disorders: No - INTEGUMENTARY Hx Dermatological Problems: No - MUSCULOSKELETAL/RHEUMATOLOGICAL Hx Musculoskeletal Disorders: No Hx Falls: No - GASTROINTESTINAL Hx Gastrointestinal Disorders: Yes (gastritis) - GENITOURINARY/GYNECOLOGICAL Hx Genitourinary Disorders: No - PSYCHIATRIC Hx Psychophysiologic Disorder: Yes Hx Anxiety: Yes Hx Depression: Yes Hx Substance Use: No - SURGICAL HISTORY Hx Surgeries: No - ANESTHESIA Hx Anesthesia: No Meds Allergies/Adverse Reactions: Allergies Allergy/AdvReac Type Severity Reaction Status Date / Time Penicillins Allergy DIARRHEA Verified 11/03/17 01:34 - Medications Medications: Current Medications Acetaminophen (Tylenol 325mg Tab) 650 mg PO Q6H PRN PRN Reason: Pain, Mild (1-3) Last Admin: 11/03/17 12:20 Dose: 650 mg Albuterol/Ipratropium (Duoneb 3 Mg/0.5 Mg (3 Ml) Ud) 3 ml IH Q2H PRN PRN Reason: Shortness of Breath Clonazepam (Klonopin) 0.5 mg PO BID PRN; Protocol PRN Reason: Anxiety Last Admin: 11/03/17 06:12 Dose: 0.5 mg Sodium Chloride (Sodium Chloride 0.9%) 1,000 mls @ 100 mls/hr IV .Q10H [facility] Last Admin: 11/03/17 12:21 Dose: 100 mls/hr Ceftriaxone Sodium (Rocephin 1 Gram Ivpb) 1 gm in 100 mls @ 100 mls/hr IVPB DAILY [facility] PRN Reason: Protocol Last Admin: 11/03/17 09:04 Dose: 100 mls/hr Azithromycin (Zithromax 500mg In Ns) 500 mg in 250 mls @ 167 mls/hr IVPB DAILY [facility] PRN Reason: Protocol Last Admin: 11/03/17 09:04 Dose: 167 mls/hr Ibuprofen (Motrin Tab) 400 mg PO Q6H PRN PRN Reason: Fever >100.4 F Last Admin: 11/03/17 14:52 Dose: 400 mg Ondansetron HCl (Zofran Inj) 4 mg IVP Q6H PRN PRN Reason: Nausea/Vomiting Last Admin: 11/03/17 05:41 Dose: 4 mg Oseltamivir Phosphate (Tamiflu Cap) 75 mg PO BID [facility] PRN Reason: Protocol Stop: 11/08/17 02:23 Last Admin: 11/03/17 17:07 Dose: 75 mg Pantoprazole Sodium (Protonix Ec Tab) 40 mg PO ACB [facility]ENCE Last Admin: 11/03/17 06:51 Dose: 40 mg Results - Vital Signs Recent Vital Signs: Last Vital Signs Temp 99.6 F 11/03/17 16:00 Pulse 91 H 11/03/17 16:00 Resp 20 11/03/17 16:00 BP 93/60 L 11/03/17 16:00 Pulse Ox 97 11/03/17 16:00 - Labs Result Diagrams: 11/02/17 22:38 11/02/17 22:38 Labs: Laboratory Results - last 24 hr 11/03/17 11/03/17 02:30 06:35 Procalcitonin < 0.05 L Urine Opiates Screen Negative Urine Methadone Screen Negative Ur Barbiturates Screen Negative Ur Phencyclidine Scrn Negative Ur Amphetamines Screen Negative U Benzodiazepines Scrn Negative U Oth Cocaine Metabols Negative U Cannabinoids Screen Negative
[2017-11-04 08:24] LABS: URINE BILIRUBIN NEGATIVE (NEGATIVE); URINE BLOOD NEGATIVE (NEGATIVE); URINE GLUCOSE (UA) NEGATIVE (NEGATIVE); URINE LEUKOCYTE ESTERASE NEGATIVE Leu/uL (NEGATIVE); URINE NITRATE NEGATIVE (NEGATIVE); URINE PROTEIN NEGATIVE mg/dL (<30 mg/dL); URINE UROBILINOGEN 0.2 E.U./dL (<1 E.U./dL)
[2017-11-04 08:28] LABS: URINE APPEARANCE CLEAR (CLEAR); URINE COLOR YELLOW (YELLOW)
[2017-11-04 09:00] LABS: BASO # 0.01 K/mm3 (0.0-2.0); BASO % 0.5 % (0.0-3.0); GRAN # 0.97 (1.4-6.5); GRAN % 50.6 % (50.0-68.0); HEMOGLOBIN 10.6 g/dL (12.0-16.0); LYMPH # 0.8 (1.2-3.4); LYMPH % 39.6 % (22.0-35.0); MEAN CELL VOLUME 85.2 fl (80.0-105.0); MEAN CORPUSCULAR HEMOGLOBIN 27.5 pg (25.0-35.0); MEAN CORPUSCULAR HGB CONC 32.2 g/dl (31.0-37.0); MEAN PLATELET VOLUME 10.5 fl (7.0-11.0); MONO # 0.2 (0.1-0.6); MONO % 8.3 % (1.0-6.0); RBC 3.86 10^6/uL (3.5-6.1); RED CELL DISTRIBUTION WIDTH 13.8 % (11.5-14.5)
[2017-11-04] MEDS: Pantoprazole 40 mg EC Tab PO SCH (09:04)
[2017-11-04] MEDS: cefTRIAXone 1 gm 1 GM/100 ML BAG IVPB SCH (09:04)
[2017-11-04 09:15] LABS: ALB/GLOB RATIO 1.1 (1.1-1.8); ALBUMIN 3.1 g/dL (3.0-4.8); ALT/SGPT 28 U/L (7-56); AST/SGOT 26 U/L (14-36); BLOOD UREA NITROGEN 6 mg/dL (7-21); GFR AFRICAN-AMERICAN > 60; GFR NON-AFRICAN AMERICAN > 60
[2017-11-04 09:27] LABS: WHITE BLOOD COUNT 1.9 10^3/ul (4.5-11.0)
--- NOTE | 2017-11-04 12:35 | CP.PCM.PN ---
<Jay Jay Suarez - Last Filed: 11/04/17 12:30> Subjective - Date & Time of Evaluation Date of Evaluation: 11/04/17 Time of Evaluation: 07:30 - Subjective Subjective: Jay Jay Suarez DO PGY1 - IM Progress NOte Patient seen and examined at bedside. No acute events overnight. Patient's partner was also in the room, not wearing a mask. Instructed visitor to remain outside the patient room as much as possible and wear the mask at all times while in the room. Patient reports feeling slightly better overall, but still experiencing cough and body aches. Patient had prolonged cough this morning then coughed up blood-tinged sputum. She reports significant improvement in her cough, but still having a dry cough. She denies chest pain or shortness of breath. No fever since yesterday morning. No diarrhea, constipation, dysuria, hematuria, urinary frequency/urgency. Patient is homosexual, with one partner for the past two years. No history of STI's. Denies any history of IVDU. Partner also denies the same. Patient was previously tested for HIV and was negative. Objective - Vital Signs/Intake and Output Vital Signs (last 24 hours): Temp Pulse Resp BP Pulse Ox 98.3 F 101 H 18 131/89 99 11/04/17 08:00 11/04/17 08:00 11/04/17 08:00 11/04/17 08:00 11/04/17 08:00 Intake and Output: 11/04/17 11/04/17 06:59 18:59 Intake Total 2880 Balance 2880 - Medications Medications: Current Medications Acetaminophen (Tylenol 325mg Tab) 650 mg PO Q6H PRN PRN Reason: Pain, Mild (1-3) Last Admin: 11/03/17 12:20 Dose: 650 mg Albuterol/Ipratropium (Duoneb 3 Mg/0.5 Mg (3 Ml) Ud) 3 ml IH Q2H PRN PRN Reason: Shortness of Breath Clonazepam (Klonopin) 0.5 mg PO BID PRN; Protocol PRN Reason: Anxiety Last Admin: 11/03/17 20:54 Dose: 0.5 mg Sodium Chloride (Sodium Chloride 0.9%) 1,000 mls @ 100 mls/hr IV .Q10H [facility] Last Admin: 11/03/17 23:02 Dose: 100 mls/hr Ceftriaxone Sodium (Rocephin 1 Gram Ivpb) 1 gm in 100 mls @ 100 mls/hr IVPB DAILY [facility] PRN Reason: Protocol Last Admin: 11/04/17 09:04 Dose: 100 mls/hr Azithromycin (Zithromax 500mg In Ns) 500 mg in 250 mls @ 167 mls/hr IVPB DAILY [facility] PRN Reason: Protocol Last Admin: 11/03/17 09:04 Dose: 167 mls/hr Ibuprofen (Motrin Tab) 400 mg PO Q6H PRN PRN Reason: Fever >100.4 F Last Admin: 11/04/17 09:04 Dose: 400 mg Ondansetron HCl (Zofran Inj) 4 mg IVP Q6H PRN PRN Reason: Nausea/Vomiting Last Admin: 11/03/17 20:57 Dose: 4 mg Oseltamivir Phosphate (Tamiflu Cap) 75 mg PO BID [facility] PRN Reason: Protocol Stop: 11/08/17 02:23 Last Admin: 11/04/17 09:04 Dose: 75 mg Pantoprazole Sodium (Protonix Ec Tab) 40 mg PO ACB [facility] Last Admin: 11/04/17 09:04 Dose: 40 mg - Labs Labs: 11/04/17 05:00 11/04/17 05:00 - Constitutional Appears: Non-toxic, In Acute Distress (mild) - Head Exam Head Exam: ATRAUMATIC, NORMOCEPHALIC - Eye Exam Eye Exam: EOMI, Normal appearance, PERRL - ENT Exam ENT Exam: Mucous Membranes Moist - Neck Exam Neck Exam: Normal Inspection - Respiratory Exam Respiratory Exam: Clear to Ausculation Bilateral, NORMAL BREATHING PATTERN - Cardiovascular Exam Cardiovascular Exam: RRR, +S1, +S2 - GI/Abdominal Exam GI & Abdominal Exam: Soft, Normal Bowel Sounds. absent: Tenderness - Extremities Exam Extremities Exam: absent: Calf Tenderness, Pedal Edema - Back Exam Back Exam: absent: CVA tenderness (L), CVA tenderness (R) - Neurological Exam Neurological Exam: Alert, Awake, Oriented x3 - Psychiatric Exam Psychiatric exam: Normal Affect, Normal Mood - Skin Skin Exam: Dry, Intact, Normal Color Assessment and Plan - Assessment and Plan (Free Text) Assessment: 32yo F with PMH of anxiety admitted for SIRS (fever and tachycardia). Plan: 1. Malaise (SIRS resolved) - Can be secondary to flu although rapid flu negative - Influenza Ab titer pending - Peristenet leukopenia; likely 2/2 viral infection - Procal low; HIV negative; UDS negative - Blood culture shows no growth after 24 hours; sputum culture pending - ID consulted - Tylenol and Zofran prn - NS@100 - Continue Tamiflu, Rocephin and Zithro - Patient has questionable adverse reaction to penicillin in the past; caused diarrhea, upset stomach; no rash, wheeze, dyspnea, anaphylaxis 2. Hx of Anxiety - Klonopin prn GI ppx: Protonix DVT ppx: SCDs Case seen, discussed and reviewed with attending Dr. Granda. <Makayla Granda - Last Filed: 11/04/17 18:48> Objective - Vital Signs/Intake and Output Vital Signs (last 24 hours): Temp Pulse Resp BP Pulse Ox 97.3 F L 87 18 119/60 98 11/04/17 16:00 11/04/17 16:00 11/04/17 16:00 11/04/17 16:00 11/04/17 16:00 Intake and Output: 11/04/17 11/04/17 06:59 18:59 Intake Total 2880 2260 Balance 2880 2260 - Medications Medications: Current Medications Acetaminophen (Tylenol 325mg Tab) 650 mg PO Q6H PRN PRN Reason: Pain, Mild (1-3) Last Admin: 11/03/17 12:20 Dose: 650 mg Albuterol/Ipratropium (Duoneb 3 Mg/0.5 Mg (3 Ml) Ud) 3 ml IH Q2H PRN PRN Reason: Shortness of Breath Clonazepam (Klonopin) 0.5 mg PO BID PRN; Protocol PRN Reason: Anxiety Last Admin: 11/03/17 20:54 Dose: 0.5 mg Sodium Chloride (Sodium Chloride 0.9%) 1,000 mls @ 100 mls/hr IV .Q10H [facility] Last Admin: 11/03/17 23:02 Dose: 100 mls/hr Azithromycin (Zithromax 500mg In Ns) 500 mg in 250 mls @ 167 mls/hr IVPB DAILY [facility] PRN Reason: Protocol Last Admin: 11/04/17 13:12 Dose: 167 mls/hr Ondansetron HCl (Zofran Inj) 4 mg IVP Q6H PRN PRN Reason: Nausea/Vomiting Last Admin: 11/04/17 17:45 Dose: 4 mg Oseltamivir Phosphate (Tamiflu Cap) 75 mg PO BID [facility] PRN Reason: Protocol Stop: 11/08/17 02:23 Last Admin: 11/04/17 09:04 Dose: 75 mg Pantoprazole Sodium (Protonix Ec Tab) 40 mg PO ACB [facility] Last Admin: 11/04/17 09:04 Dose: 40 mg - Labs Labs: 11/04/17 05:00 11/04/17 05:00 Attending/Attestation - Attestation I have personally seen and examined this patient.: Yes I have fully participated in the care of the patient.: Yes I have reviewed all pertinent clinical information, including history, physical exam and plan: Yes Notes (Text): 11/04/17 18:42 Attending note; Patient seen and examined with resident. Patient is a 32-year-old female with a history of anxiety is admitted with fever. Rapid flu negative. Symptoms of fever, malaise, generalized bodyache is consistent with viral syndrome. Influenza serology ordered. Currently on Tamiflu. On isolation. Precautions explained to the family in detail. Leukopenia; possibly secondary to viral syndrome. Monitor closely. An episode of coughing with sputum and minimum amount of blood. Chest x-ray is negative for pneumonia. Monitor closely. Repeat hemoglobin in a.m.. ID evaluation appreciated. Continue Tamiflu. Rocephin stopped secondary to leukopenia. Continue Zithromax. Fever is subsiding. HIV is negative. Monitor closely. The diagnosis, follow-up plan discussed with patient in detail. 11/04/17 18:47
[2017-11-04] MEDS: Azithromycin 500MG/NS 250ml 500 MG/250 ML BAG IVPB SCH (13:12)
[2017-11-04] MEDS: Sodium Chloride 0.9% 1,000 ML IV SCH (21:20)
--- NOTE | 2017-11-04 21:48 | CP.PCM.CON ---
History of Present Illness - History of Present Illness History of Present Illness: 32 year old female with a history of anxiety, admitted with suspected viral illness with pancytopenia. The patient notes to fevers, chills, myalgias and fatigue. Her influenza A/B screen in the ER was negative but the patient is suspected of having a viral illess. She notes to feeling better since coming to the hospital. She denies abnormal blood counts in the past. Review of her blood work shows she had normal blood counts in 11/2016. Past medical history: Anxiety Past surgical history: None Family history: Mother had cervical cancer Social history: 1/2ppd x 15 years, denies alcohol and illicit drug use. Allergies: Penicillins Review of systems: All remaining review of systems including HEENT, cardiovascular, respiratory, gastrointestinal, genitourinary, musculoskeletal, dermatologic, neurologic, and psychiatric are negative unless mentioned in the HPI. Past Patient History - Infectious Disease Hx of Infectious Diseases: None - Tetanus Immunizations Tetanus Immunization: Unknown - Past Social History Smoking Status: Light Smoker < 10 Cigarettes Daily - CARDIAC Hx Cardiac Disorders: No - PULMONARY Hx Respiratory Disorders: Yes Hx Asthma: Yes (uses inhaler) - NEUROLOGICAL Hx Neurological Disorder: No - HEENT Hx HEENT Problems: No - RENAL Hx Chronic Kidney Disease: No - ENDOCRINE/METABOLIC Hx Endocrine Disorders: No - HEMATOLOGICAL/ONCOLOGICAL Hx Blood Disorders: No - INTEGUMENTARY Hx Dermatological Problems: No - MUSCULOSKELETAL/RHEUMATOLOGICAL Hx Musculoskeletal Disorders: No Hx Falls: No - GASTROINTESTINAL Hx Gastrointestinal Disorders: Yes (gastritis) - GENITOURINARY/GYNECOLOGICAL Hx Genitourinary Disorders: No - PSYCHIATRIC Hx Psychophysiologic Disorder: Yes Hx Anxiety: Yes Hx Depression: Yes Hx Substance Use: No - SURGICAL HISTORY Hx Surgeries: No - ANESTHESIA Hx Anesthesia: No Meds Allergies/Adverse Reactions: Allergies Allergy/AdvReac Type Severity Reaction Status Date / Time Penicillins AdvReac DIARRHEA Verified 11/04/17 12:13 - Medications Medications: Current Medications Acetaminophen (Tylenol 325mg Tab) 650 mg PO Q6H PRN PRN Reason: Pain, Mild (1-3) Last Admin: 11/03/17 12:20 Dose: 650 mg Albuterol/Ipratropium (Duoneb 3 Mg/0.5 Mg (3 Ml) Ud) 3 ml IH Q2H PRN PRN Reason: Shortness of Breath Clonazepam (Klonopin) 0.5 mg PO BID PRN; Protocol PRN Reason: Anxiety Last Admin: 11/03/17 20:54 Dose: 0.5 mg Sodium Chloride (Sodium Chloride 0.9%) 1,000 mls @ 100 mls/hr IV .Q10H [facility] Last Admin: 11/04/17 21:20 Dose: 100 mls/hr Azithromycin (Zithromax 500mg In Ns) 500 mg in 250 mls @ 167 mls/hr IVPB DAILY [facility] PRN Reason: Protocol Last Admin: 11/04/17 13:12 Dose: 167 mls/hr Ondansetron HCl (Zofran Inj) 4 mg IVP Q6H PRN PRN Reason: Nausea/Vomiting Last Admin: 11/04/17 17:45 Dose: 4 mg Oseltamivir Phosphate (Tamiflu Cap) 75 mg PO BID [facility] PRN Reason: Protocol Stop: 11/08/17 02:23 Last Admin: 11/04/17 18:50 Dose: 75 mg Pantoprazole Sodium (Protonix Ec Tab) 40 mg PO ACB [facility] Last Admin: 11/04/17 09:04 Dose: 40 mg Physical Exam - Head Exam Head Exam: ATRAUMATIC - ENT Exam ENT Exam: Mucous Membranes Dry - Respiratory Exam Respiratory Exam: NORMAL BREATHING PATTERN - Cardiovascular Exam Cardiovascular Exam: +S1, +S2 - GI/Abdominal Exam GI & Abdominal Exam: Normal Bowel Sounds - Extremities Exam Extremities exam: Positive for: normal inspection - Neurological Exam Neurological exam: Oriented x3 - Psychiatric Exam Psychiatric exam: Normal Affect, Normal Mood - Skin Skin Exam: Warm Results - Vital Signs Recent Vital Signs: Last Vital Signs Temp 97.3 F L 11/04/17 16:00 Pulse 87 11/04/17 16:00 Resp 18 11/04/17 16:00 BP 119/60 11/04/17 16:00 Pulse Ox 98 11/04/17 16:00 - Labs Result Diagrams: 11/04/17 05:00 11/04/17 05:00 Labs: Laboratory Results - last 24 hr 11/04/17 11/04/17 11/04/17 05:00 05:00 08:12 WBC 1.9 L* D RBC 3.86 Hgb 10.6 L Hct 32.9 L MCV 85.2 MCH 27.5 MCHC 32.2 RDW 13.8 Plt Count 101 L MPV 10.5 Gran % 50.6 Lymph % (Auto) 39.6 H Murray % (Auto) 8.3 H Eos % (Auto) 1.0 L Baso % (Auto) 0.5 Gran # 0.97 L Lymph # (Auto) 0.8 L Murray # (Auto) 0.2 Eos # (Auto) 0.0 Baso # (Auto) 0.01 Sodium 139 Potassium 3.8 Chloride 109 H Carbon Dioxide 20 L Anion Gap 14 BUN 6 L Creatinine 0.7 Est GFR ( Amer) > 60 Est GFR (Non-Af Amer) > 60 Random Glucose 80 Calcium 8.0 L Total Bilirubin 0.2 AST 26 ALT 28 Alkaline Phosphatase 42 Total Protein 5.8 Albumin 3.1 Globulin 2.7 Albumin/Globulin Ratio 1.1 Urine Color Yellow Urine Appearance Clear Urine pH 6.0 Ur Specific [place] 1.025 Urine Protein Negative Urine Glucose (UA) Negative Urine Ketones >=80 Urine Blood Negative Urine Nitrate Negative Urine Bilirubin Negative Urine Urobilinogen 0.2 Ur Leukocyte Esterase Negative Assessment & Plan (1) Pancytopenia Assessment and Plan: suspect related to acute illness normal blood counts 11/2016 cont. to monitor Thank you for this interesting consult. Status: Acute
--- NOTE | 2017-11-04 22:56 | CP.PCM.PN ---
Subjective - Date & Time of Evaluation Date of Evaluation: 11/04/17 Time of Evaluation: 21:00 - Subjective Subjective: Infectious Disease Follow Up: November 04, 2017 32 yo female with 1 day of fevers and worsening abdominal pain. The patient had a negative rapid flu test but she complains of shortness of breath, cough, and body aches. The patient has a history of gastritis and anxiety. Questionable PCN allergy as she states stomach upset. History of H. pylori. History of travel outside of the [facility]. Patient feeling better today. Leukopenia likely secondary to viral etiology of patient's current illness. Awaiting Influenza Antibody titers. Objective - Vital Signs/Intake and Output Vital Signs (last 24 hours): Temp Pulse Resp BP Pulse Ox 97.3 F L 87 18 119/60 98 11/04/17 16:00 11/04/17 16:00 11/04/17 16:00 11/04/17 16:00 11/04/17 16:00 Intake and Output: 11/04/17 11/05/17 18:59 06:59 Intake Total 2260 720 Balance 2260 720 - Medications Medications: Current Medications Acetaminophen (Tylenol 325mg Tab) 650 mg PO Q6H PRN PRN Reason: Pain, Mild (1-3) Last Admin: 11/03/17 12:20 Dose: 650 mg Albuterol/Ipratropium (Duoneb 3 Mg/0.5 Mg (3 Ml) Ud) 3 ml IH Q2H PRN PRN Reason: Shortness of Breath Clonazepam (Klonopin) 0.5 mg PO BID PRN; Protocol PRN Reason: Anxiety Last Admin: 11/03/17 20:54 Dose: 0.5 mg Sodium Chloride (Sodium Chloride 0.9%) 1,000 mls @ 100 mls/hr IV .Q10H [facility] Last Admin: 11/04/17 21:20 Dose: 100 mls/hr Azithromycin (Zithromax 500mg In Ns) 500 mg in 250 mls @ 167 mls/hr IVPB DAILY [facility] PRN Reason: Protocol Last Admin: 11/04/17 13:12 Dose: 167 mls/hr Ondansetron HCl (Zofran Inj) 4 mg IVP Q6H PRN PRN Reason: Nausea/Vomiting Last Admin: 11/04/17 17:45 Dose: 4 mg Oseltamivir Phosphate (Tamiflu Cap) 75 mg PO BID [facility] PRN Reason: Protocol Stop: 11/08/17 02:23 Last Admin: 11/04/17 18:50 Dose: 75 mg Pantoprazole Sodium (Protonix Ec Tab) 40 mg PO ACB [facility] Last Admin: 11/04/17 09:04 Dose: 40 mg - Labs Labs: 11/04/17 05:00 11/04/17 05:00 - Constitutional Appears: Non-toxic, No Acute Distress - Head Exam Head Exam: ATRAUMATIC, NORMOCEPHALIC - Eye Exam Eye Exam: EOMI, PERRL Pupil Exam: NORMAL ACCOMODATION, PERRL - ENT Exam ENT Exam: Mucous Membranes Moist, Normal External Ear Exam, TM's Normal Bilaterally - Neck Exam Neck Exam: Full ROM, Normal Inspection - Respiratory Exam Respiratory Exam: Clear to Ausculation Bilateral, NORMAL BREATHING PATTERN. absent: Rales, Rhonchi, Wheezes - Cardiovascular Exam Cardiovascular Exam: Tachycardia, +S1, +S2 - GI/Abdominal Exam GI & Abdominal Exam: Soft, Normal Bowel Sounds. absent: Distended - Extremities Exam Extremities Exam: Full ROM, Normal Inspection - Neurological Exam Neurological Exam: Alert, Awake, CN II-XII Intact, Oriented x3 - Psychiatric Exam Psychiatric exam: Normal Affect, Normal Mood - Skin Skin Exam: Intact, Normal Color Assessment and Plan - Assessment and Plan (Free Text) Assessment: 32 yo female with flu like symptoms. Despite rapid flu testing being negative, the patient symptom reach all the hallmarks of Influenza. Currently on Tamiflu, Rocephin, and Azithromycin. Cultures pending. Fevers up to 102 F yesterday but afebrile today. Obtain serum titer studies for influenza. Supportive care. Leukopenia most likely secondary to acute viral illness. Patient states that she feels better. Influenza antibody titers are pending. Patient with history of gastritis and prior H. pylori infection. Spoke with Dr. Granda. Thank you for allowing me to participate in the care of this patient, we will follow with you.
[2017-11-05] MEDS: Sodium Chloride 0.9% 1,000 ML IV SCH (07:43)
[2017-11-05] MEDS: Pantoprazole 40 mg EC Tab PO SCH (08:20)
[2017-11-05 08:29] LABS: EOS # 0.1 (0.0-0.7); EOS % 3.4 % (1.5-5.0); GRAN # 0.76 (1.4-6.5); GRAN % 36.5 % (50.0-68.0); LYMPH # 1.1 (1.2-3.4); MEAN CELL VOLUME 84.3 fl (80.0-105.0); MEAN CORPUSCULAR HEMOGLOBIN 27.9 pg (25.0-35.0); MEAN CORPUSCULAR HGB CONC 33.1 g/dl (31.0-37.0); MEAN PLATELET VOLUME 10.5 fl (7.0-11.0); MONO # 0.2 (0.1-0.6); MONO % 9.1 % (1.0-6.0); RBC 3.94 10^6/uL (3.5-6.1); RED CELL DISTRIBUTION WIDTH 13.8 % (11.5-14.5)
[2017-11-05 08:31] LABS: WHITE BLOOD COUNT 2.1 10^3/ul (4.5-11.0)
[2017-11-05 08:42] LABS: ALB/GLOB RATIO 1.2 (1.1-1.8); ALBUMIN 3.2 g/dL (3.0-4.8); ALT/SGPT 33 U/L (7-56); AST/SGOT 29 U/L (14-36); BLOOD UREA NITROGEN 5 mg/dL (7-21); CALCIUM 8.1 mg/dL (8.4-10.5); GFR AFRICAN-AMERICAN > 60; GFR NON-AFRICAN AMERICAN > 60
[2017-11-05 09:11] VITALS: BP 114/79; PULSE 73; RESP 16; TEMP 98.4; O2SAT 97
[2017-11-05] MEDS: Azithromycin 500MG/NS 250ml 500 MG/250 ML BAG IVPB SCH (10:18)
--- NOTE | 2017-11-05 17:17 | CP.PCM.DIS ---
<DanielaJay Jay - Last Filed: 11/05/17 17:14> Provider - Provider Date of Admission: 11/03/17 16:14 Attending physician: Makayla Granda MD Consults: ID: [place] HemOnc: Mustapha Time Spent in preparation of Discharge (in minutes): 35 Diagnosis - Discharge Diagnosis (1) Fever Status: Acute (2) Pancytopenia Status: Acute Hospital Course - Lab Results Lab Results: Micro Results 11/04/17 08:12 Sputum Gram Stain - Preliminary Most Recent Lab Values WBC 2.1 10^3/ul (4.5-11.0) L* 11/05/17 08:20 RBC 3.94 10^6/uL (3.5-6.1) 11/05/17 08:20 Hgb 11.0 g/dL (12.0-16.0) L 11/05/17 08:20 Hct 33.2 % (36.0-48.0) L 11/05/17 08:20 MCV 84.3 fl (80.0-105.0) 11/05/17 08:20 MCH 27.9 pg (25.0-35.0) 11/05/17 08:20 MCHC 33.1 g/dl (31.0-37.0) 11/05/17 08:20 RDW 13.8 % (11.5-14.5) 11/05/17 08:20 Plt Count 108 10^3/uL (120.0-450.0) L 11/05/17 08:20 MPV 10.5 fl (7.0-11.0) 11/05/17 08:20 Gran % 36.5 % (50.0-68.0) L 11/05/17 08:20 Lymph % (Auto) 51.0 % (22.0-35.0) H 11/05/17 08:20 Motley % (Auto) 9.1 % (1.0-6.0) H 11/05/17 08:20 Eos % (Auto) 3.4 % (1.5-5.0) 11/05/17 08:20 Baso % (Auto) 0.0 % (0.0-3.0) 11/05/17 08:20 Gran # 0.76 (1.4-6.5) L 11/05/17 08:20 Lymph # (Auto) 1.1 (1.2-3.4) L 11/05/17 08:20 Motley # (Auto) 0.2 (0.1-0.6) 11/05/17 08:20 Eos # (Auto) 0.1 (0.0-0.7) 11/05/17 08:20 Baso # (Auto) 0.00 K/mm3 (0.0-2.0) 11/05/17 08:20 pO2 196 mm/Hg (30-55) H 11/03/17 00:50 VBG pH 7.46 (7.32-7.43) H 11/03/17 00:50 VBG pCO2 33.0 (40-60) L 11/03/17 00:50 VBG HCO3 23.5 mmol/l (21-28) 11/03/17 00:50 VBG Total CO2 24.5 mmol.L (22-28) 11/03/17 00:50 VBG O2 Sat (Calc) 100.0 % (40-65) H 11/03/17 00:50 VBG Base Excess 0.3 mmol/L (0.0-2.0) 11/03/17 00:50 VBG Potassium 3.2 mmol/L (3.6-5.2) L 11/03/17 00:50 Sodium 139.0 mmol/L (132-148) 11/03/17 00:50 Chloride 114.0 mmol/L (98-107) H 11/03/17 00:50 Glucose 102 mg/dl (65-105) 11/03/17 00:50 Lactate 0.6 mmol/L (0.7-2.1) L 11/03/17 00:50 FiO2 21.0 % 11/03/17 00:50 Sodium 141 mmol/L (132-148) 11/05/17 08:20 Potassium 3.9 mmol/L (3.6-5.0) 11/05/17 08:20 Chloride 109 mmol/L (98-107) H 11/05/17 08:20 Carbon Dioxide 22 mmol/L (21-33) 11/05/17 08:20 Anion Gap 13 (10-20) 11/05/17 08:20 BUN 5 mg/dL (7-21) L 11/05/17 08:20 Creatinine 0.6 mg/dl (0.7-1.2) L 11/05/17 08:20 Est GFR ( Amer) > 60 11/05/17 08:20 Est GFR (Non-Af Amer) > 60 11/05/17 08:20 Random Glucose 87 mg/dL (70-110) 11/05/17 08:20 Calcium 8.1 mg/dL (8.4-10.5) L 11/05/17 08:20 Total Bilirubin 0.2 mg/dL (0.2-1.3) 11/05/17 08:20 AST 29 U/L (14-36) 11/05/17 08:20 ALT 33 U/L (7-56) 11/05/17 08:20 Alkaline Phosphatase 41 U/L (38-126) 11/05/17 08:20 Total Protein 5.9 g/dL (5.8-8.3) 11/05/17 08:20 Albumin 3.2 g/dL (3.0-4.8) 11/05/17 08:20 Globulin 2.7 gm/dL 11/05/17 08:20 Albumin/Globulin Ratio 1.2 (1.1-1.8) 11/05/17 08:20 Procalcitonin < 0.05 NG/ML (0.19-0.49) L 11/03/17 02:30 Venous Blood Potassium 3.2 mmol/L (3.6-5.2) L 11/03/17 00:50 Urine Color Yellow (YELLOW) 11/04/17 08:12 Urine Appearance Clear (CLEAR) 11/04/17 08:12 Urine pH 6.0 (4.7-8.0) 11/04/17 08:12 Ur Specific [place] 1.025 (1.005-1.035) 11/04/17 08:12 Urine Protein Negative mg/dL (<30 mg/dL) 11/04/17 08:12 Urine Glucose (UA) Negative mg/dL (NEGATIVE) 11/04/17 08:12 Urine Ketones >=80 mg/dL (NEGATIVE) 11/04/17 08:12 Urine Blood Negative (NEGATIVE) 11/04/17 08:12 Urine Nitrate Negative (NEGATIVE) 11/04/17 08:12 Urine Bilirubin Negative (NEGATIVE) 11/04/17 08:12 Urine Urobilinogen 0.2 E.U./dL (<1 E.U./dL) 11/04/17 08:12 Ur Leukocyte Esterase Negative [place]/uL (NEGATIVE) 11/04/17 08:12 Urine Opiates Screen Negative (NEGATIVE) 11/03/17 06:35 Urine Methadone Screen Negative (NEGATIVE) 11/03/17 06:35 Ur Barbiturates Screen Negative (NEGATIVE) 11/03/17 06:35 Ur Phencyclidine Scrn Negative (NEGATIVE) 11/03/17 06:35 Ur Amphetamines Screen Negative (NEGATIVE) 11/03/17 06:35 U Benzodiazepines Scrn Negative (NEGATIVE) 11/03/17 06:35 U Oth Cocaine Metabols Negative (NEGATIVE) 11/03/17 06:35 U Cannabinoids Screen Negative (NEGATIVE) 11/03/17 06:35 HIV 1&2 Ag/Ab, 4th Gen Nonreactive (Nonreactive) 11/03/17 02:20 Influenza Typ A,B (EIA) Negative for flu a/b (NEGATIVE) 11/02/17 21:30 - Hospital Course Hospital Course: 32yo F with PMH of anxiety admitted for flu-like symptoms and SIRS (fever and tachycardia). Patient was treated initially with IV fluids, antibiotics, and Tamiflu. Septic workup was negative, including UA, urine cultures, blood cultures, Procal, and rapid flu. Clinically, patient most likely has influenza, and was treated as such. Patient was also leukopenic, which was likely 2/2 viral illness. She was seen by hem/onc who said the same. She was advised to recheck her bloodwork in 1-2 weeks to monitor for improvement. She was also checked for HIV, which was negative. She denied easy bruising, weight loss, or night sweats. Today, she feels significantly better than on admission, though still with some fatigue and cough. She denies any chest pain, shortness of breath, fever, chills , abdominal pain, nausea, vomiting, diarrhea, constipation. She was given prescriptions to complete the course of antibiotics and Tamiflu. She was also given instructions on follow up. All questions were answered to her satisfaction , and she was discharged to home Discharge Exam - Head Exam Head Exam: ATRAUMATIC, NORMOCEPHALIC - Eye Exam Eye Exam: EOMI, Normal appearance, PERRL - ENT Exam ENT Exam: Mucous Membranes Moist - Neck Exam Neck exam: Normal Inspection - Respiratory Exam Respiratory Exam: Clear to PA & Lateral, NORMAL BREATHING PATTERN - Cardiovascular Exam Cardiovascular Exam: RRR, +S1, +S2 - GI/Abdominal Exam GI & Abdominal Exam: Normal Bowel Sounds, Soft. absent: Tenderness - Extremities Exam Extremities exam: normal inspection - Neurological Exam Neurological exam: Alert, Oriented x3 - Psychiatric Exam Psychiatric exam: Normal Affect, Normal Mood - Skin Skin Exam: Dry, Intact, Normal Color Discharge Plan - Discharge Medications Prescriptions: Albuterol HFA [Ventolin HFA 90 mcg/actuation (8 g)] 2 puff IH [id number] #1 inhaler Azithromycin [Zithromax] 250 mg PO DAILY #3 tab guaiFENesin [guaifENESIN] 100 mg PO Q8H #1 bottle Ondansetron ODT [Zofran ODT] 4 mg PO Q8H #15 odt Oseltamivir [Tamiflu Cap] 75 mg PO BID #7 cap - Follow Up Plan Condition: FAIR Disposition: HOME/ ROUTINE Instructions: How to Use a Metered-Dose Inhaler (DC), Influenza (DC), Sepsis ( GEN) Additional Instructions: 1. Continue to take Tamiflu for three more days, even if you feel better - wash your hands frequently, wear a mask when around others 2. Continue to take Azithromycin for three more days, even if you feel better 3. Use the zofran, robitussin, and ventolin as needed 4. Go for repeat bloodwork in 1-2 weeks with your primary care doctor or Dr. Luciano 5. Follow up with your primary care doctor within one week 6. For any new or worsening concerns, contact your PCP immediately, or return to the ER Referrals: [employer] [facility], [Non-Staff] - Carlos Luciano MD [Staff Provider] - <Makayla Granda - Last Filed: 11/06/17 13:28> Provider - Provider Date of Admission: 11/03/17 16:14 Attending physician: Makayla Granda MD Hospital Course - Lab Results Lab Results: Micro Results 11/04/17 08:12 Sputum Gram Stain - Final 11/04/17 08:12 Sputum Sputum Culture - Final NORMAL SAPROPHYTIC STALIN Most Recent Lab Values WBC 2.1 10^3/ul (4.5-11.0) L* 11/05/17 08:20 RBC 3.94 10^6/uL (3.5-6.1) 11/05/17 08:20 Hgb 11.0 g/dL (12.0-16.0) L 11/05/17 08:20 Hct 33.2 % (36.0-48.0) L 11/05/17 08:20 MCV 84.3 fl (80.0-105.0) 11/05/17 08:20 MCH 27.9 pg (25.0-35.0) 11/05/17 08:20 MCHC 33.1 g/dl (31.0-37.0) 11/05/17 08:20 RDW 13.8 % (11.5-14.5) 11/05/17 08:20 Plt Count 108 10^3/uL (120.0-450.0) L 11/05/17 08:20 MPV 10.5 fl (7.0-11.0) 11/05/17 08:20 Gran % 36.5 % (50.0-68.0) L 11/05/17 08:20 Lymph % (Auto) 51.0 % (22.0-35.0) H 11/05/17 08:20 Motley % (Auto) 9.1 % (1.0-6.0) H 11/05/17 08:20 Eos % (Auto) 3.4 % (1.5-5.0) 11/05/17 08:20 Baso % (Auto) 0.0 % (0.0-3.0) 11/05/17 08:20 Gran # 0.76 (1.4-6.5) L 11/05/17 08:20 Lymph # (Auto) 1.1 (1.2-3.4) L 11/05/17 08:20 Motley # (Auto) 0.2 (0.1-0.6) 11/05/17 08:20 Eos # (Auto) 0.1 (0.0-0.7) 11/05/17 08:20 Baso # (Auto) 0.00 K/mm3 (0.0-2.0) 11/05/17 08:20 pO2 196 mm/Hg (30-55) H 11/03/17 00:50 VBG pH 7.46 (7.32-7.43) H 11/03/17 00:50 VBG pCO2 33.0 (40-60) L 11/03/17 00:50 VBG HCO3 23.5 mmol/l (21-28) 11/03/17 00:50 VBG Total CO2 24.5 mmol.L (22-28) 11/03/17 00:50 VBG O2 Sat (Calc) 100.0 % (40-65) H 11/03/17 00:50 VBG Base Excess 0.3 mmol/L (0.0-2.0) 11/03/17 00:50 VBG Potassium 3.2 mmol/L (3.6-5.2) L 11/03/17 00:50 Sodium 139.0 mmol/L (132-148) 11/03/17 00:50 Chloride 114.0 mmol/L (98-107) H 11/03/17 00:50 Glucose 102 mg/dl (65-105) 11/03/17 00:50 Lactate 0.6 mmol/L (0.7-2.1) L 11/03/17 00:50 FiO2 21.0 % 11/03/17 00:50 Sodium 141 mmol/L (132-148) 11/05/17 08:20 Potassium 3.9 mmol/L (3.6-5.0) 11/05/17 08:20 Chloride 109 mmol/L (98-107) H 11/05/17 08:20 Carbon Dioxide 22 mmol/L (21-33) 11/05/17 08:20 Anion Gap 13 (10-20) 11/05/17 08:20 BUN 5 mg/dL (7-21) L 11/05/17 08:20 Creatinine 0.6 mg/dl (0.7-1.2) L 11/05/17 08:20 Est GFR ( Amer) > 60 11/05/17 08:20 Est GFR (Non-Af Amer) > 60 11/05/17 08:20 Random Glucose 87 mg/dL (70-110) 11/05/17 08:20 Calcium 8.1 mg/dL (8.4-10.5) L 11/05/17 08:20 Total Bilirubin 0.2 mg/dL (0.2-1.3) 11/05/17 08:20 AST 29 U/L (14-36) 11/05/17 08:20 ALT 33 U/L (7-56) 11/05/17 08:20 Alkaline Phosphatase 41 U/L (38-126) 11/05/17 08:20 Total Protein 5.9 g/dL (5.8-8.3) 11/05/17 08:20 Albumin 3.2 g/dL (3.0-4.8) 11/05/17 08:20 Globulin 2.7 gm/dL 11/05/17 08:20 Albumin/Globulin Ratio 1.2 (1.1-1.8) 11/05/17 08:20 Procalcitonin < 0.05 NG/ML (0.19-0.49) L 11/03/17 02:30 Venous Blood Potassium 3.2 mmol/L (3.6-5.2) L 11/03/17 00:50 Urine Color Yellow (YELLOW) 11/04/17 08:12 Urine Appearance Clear (CLEAR) 11/04/17 08:12 Urine pH 6.0 (4.7-8.0) 11/04/17 08:12 Ur Specific [place] 1.025 (1.005-1.035) 11/04/17 08:12 Urine Protein Negative mg/dL (<30 mg/dL) 11/04/17 08:12 Urine Glucose (UA) Negative mg/dL (NEGATIVE) 11/04/17 08:12 Urine Ketones >=80 mg/dL (NEGATIVE) 11/04/17 08:12 Urine Blood Negative (NEGATIVE) 11/04/17 08:12 Urine Nitrate Negative (NEGATIVE) 11/04/17 08:12 Urine Bilirubin Negative (NEGATIVE) 11/04/17 08:12 Urine Urobilinogen 0.2 E.U./dL (<1 E.U./dL) 11/04/17 08:12 Ur Leukocyte Esterase Negative [place]/uL (NEGATIVE) 11/04/17 08:12 Urine Opiates Screen Negative (NEGATIVE) 11/03/17 06:35 Urine Methadone Screen Negative (NEGATIVE) 11/03/17 06:35 Ur Barbiturates Screen Negative (NEGATIVE) 11/03/17 06:35 Ur Phencyclidine Scrn Negative (NEGATIVE) 11/03/17 06:35 Ur Amphetamines Screen Negative (NEGATIVE) 11/03/17 06:35 U Benzodiazepines Scrn Negative (NEGATIVE) 11/03/17 06:35 U Oth Cocaine Metabols Negative (NEGATIVE) 11/03/17 06:35 U Cannabinoids Screen Negative (NEGATIVE) 11/03/17 06:35 HIV 1&2 Ag/Ab, 4th Gen Nonreactive (Nonreactive) 11/03/17 02:20 Influenza Typ A,B (EIA) Negative for flu a/b (NEGATIVE) 11/02/17 21:30 Attending/Attestation - Attestation I have personally seen and examined this patient.: Yes I have fully participated in the care of the patient.: Yes I have reviewed all pertinent clinical information, including history, physical exam and plan: Yes Notes (Text): 11/06/17 13:23 Attending note; Patient seen and examined with resident. Patient is a 32-year-old female with a history of anxiety is admitted with fever. Rapid flu negative. currently no fever. No abdominal pain. No nausea, vomiting. tolerating diet well. Influenza serology is pending. Currently on Tamiflu. On isolation. Precautions explained to the family in detail. Leukopenia; possibly secondary to viral syndrome. Improving slowly. Patient was evaluated by [employer] Dr. Luciano. Patient will get repeat CBC in 1 week. ID evaluation appreciated. Continue Tamiflu. HIV is negative. The diagnosis, follow-up plan discussed with patient in detail. diagnosis; Viral syndrome Leukopenia/thrombocytopenia Anxiety
--- NOTE | 2017-11-05 18:24 | CP.PCM.PN ---
Subjective - Date & Time of Evaluation Date of Evaluation: 11/05/17 Time of Evaluation: 15:15 - Subjective Subjective: Infectious Disease Follow Up: November 05, 2017 32 yo female with 1 day of fevers and worsening abdominal pain. The patient had a negative rapid flu test but she complains of shortness of breath, cough, and body aches. The patient has a history of gastritis and anxiety. Questionable PCN allergy as she states stomach upset. History of H. pylori. History of travel outside of the [facility]. Patient feeling better today. Leukopenia likely secondary to viral etiology of patient's current illness. Influenza Antibody titers still pending. Still with leukopenia but expected in viral etiologies. Objective - Vital Signs/Intake and Output Vital Signs (last 24 hours): Temp Pulse Resp BP Pulse Ox 98.4 F 73 16 114/79 97 11/05/17 08:00 11/05/17 08:00 11/05/17 08:00 11/05/17 08:00 11/05/17 08:00 Intake and Output: 11/05/17 11/05/17 06:59 18:59 Intake Total 1080 Balance 1080 - Labs Labs: 11/05/17 08:20 11/05/17 08:20 - Constitutional Appears: Non-toxic, No Acute Distress - Head Exam Head Exam: ATRAUMATIC, NORMOCEPHALIC - Eye Exam Eye Exam: EOMI, PERRL Pupil Exam: NORMAL ACCOMODATION, PERRL - ENT Exam ENT Exam: Mucous Membranes Moist, Normal External Ear Exam, TM's Normal Bilaterally - Neck Exam Neck Exam: Full ROM, Normal Inspection - Respiratory Exam Respiratory Exam: Clear to Ausculation Bilateral, NORMAL BREATHING PATTERN. absent: Rales, Rhonchi, Wheezes - Cardiovascular Exam Cardiovascular Exam: REGULAR RHYTHM, RRR, +S1, +S2 - GI/Abdominal Exam GI & Abdominal Exam: Soft, Normal Bowel Sounds. absent: Distended, Tenderness - Extremities Exam Extremities Exam: Full ROM, Normal Inspection - Neurological Exam Neurological Exam: Alert, Awake, CN II-XII Intact, Oriented x3 - Psychiatric Exam Psychiatric exam: Normal Affect, Normal Mood - Skin Skin Exam: Intact, Normal Color Assessment and Plan - Assessment and Plan (Free Text) Assessment: 32 yo female with flu like symptoms. Despite rapid flu testing being negative, the patient symptom reach all the hallmarks of Influenza. Currently on Tamiflu, Rocephin, and Azithromycin. Cultures pending. Fevers up to 102 F during this hospitalization. Afebrile the past 48 hours. Awaiting serum titer studies for influenza. Supportive care. Leukopenia most likely secondary to acute viral illness. Patient states that she feels better. Influenza antibody titers are pending. Leukopenia should resolve over time. Patient with history of gastritis and prior H. pylori infection. Spoke with Dr. Granda. Thank you for allowing me to participate in the care of this patient, we will follow with you.
== END 2017-11-05 18:00 | disposition home or self-care (01) | DRG 153 ==
LOC: ED 19:47 → ERH 11-03 02:06 → 2A 11-03 05:52 → OBSVTOIN 11-03 16:14 → 5RNO 11-03 19:29
PROVIDERS: ADMIT Internal Medicine; ATTEND Internal Medicine
DX: J11.1 Influenza due to unidentified influenza virus with other respiratory manifestations (principal); D61.818 Other pancytopenia; R65.10 Systemic inflammatory response syndrome (SIRS) of non-infectious origin without acute organ dysfunction; F41.9 Anxiety disorder, unspecified; J45.909 Unspecified asthma, uncomplicated; K29.70 Gastritis, unspecified, without bleeding; Z86.19 Personal history of other infectious and parasitic diseases